=== PATIENT | female | born 1995 | race African-American/Black ===

== ENCOUNTER → 2021-08-29 | Outpatient (CLI) | payer OTHER ==
--- NOTE | 2021-08-30 08:21 | RAD ---
US OB <14 WKS History: Reason: SUPERVISION OF HIGH RISK / Spl. Instructions: / History: Comparison: None. Technique: Grayscale and color Doppler imaging of the pelvis was performed using transabdominal techn ique. Findings: The uterus measures 9.2 x 8.2 x 4.4 cm. Cervical length 4.38 cm. Single intrauterine gestational sac with regular appearance. Yolk sac is identified. pole is id entified with crown-rump length 2.17 cm. Estimated gestational age by ultrasound 8 weeks 6 days. Feta l heart rate 165 bpm. No perigestational fluid collection. Estimated date of completion by ultrasound April 04, 2022. Right ovary measures 2.9 x 2.4 x 1.2 cm. Left ovary measures 2.2 x 1.8 x 1.3 cm. Normal Doppler flow to the ovaries bilaterally. No adnexal masses are seen. IMPRESSION: 1. Single intrauterine with gestational age 8 weeks 6 days and heart rate 165 bpm. Electronically signed by: Brandyn Muse DO (08/30/2021 8:18 AM) [id number]
== END ==
LOC: US 15:40
PROVIDERS: ATTEND Obstetrics & Gynecology
DX: O09.71 Supervision of high risk pregnancy due to social problems, first trimester (principal); Z3A.08 8 weeks gestation of pregnancy
CPT/HCPCS: 76801

== ENCOUNTER 2021-10-23 12:08 | Emergency (ER) | payer OTHER | END 2021-10-23 14:04 | disposition left against medical advice (07) | LOC: ER 12:08 | DX: R05.9 Cough, unspecified (principal); R51.9 Headache, unspecified; R07.89 Other chest pain; Z53.21 Procedure and treatment not carried out due to patient leaving prior to being seen by health care provider ==